=== PATIENT | female | born 1970 | race Caucasian/White ===

== ENCOUNTER 2016-10-01 14:51 | Inpatient (IN) | payer OTHER ==
[~2016-10-01] VITALS: Ht 162.6 cm; Wt 141.3 kg
[2016-10-01 17:28] LABS: URINE BLOOD (Dip) POC Negative (NEGATIVE)
[2016-10-01] MEDS ORDERED: SOD CHLORIDE 0.9% 1,000 ML IV ONE (17:30)
[2016-10-01 17:47] LABS: ADD SCAN DIFF NO
[2016-10-01 17:55] LABS: ABNORMAL IP MESSAGE 1; HEMATOCRIT 22.7 % (37.0-47.0); MEAN CORPUSCULAR HEMOGLOBIN 17.1 pg (29.0-33.0); MEAN CORPUSCULAR HGB CONC 26.4 g/dl (32.0-37.0); MEAN CORPUSCULAR VOLUME 64.7 fl (82.0-101.0); PLATELET COUNT 266 10^3/UL (140-415); RED BLOOD COUNT 3.51 10^6/ul (4.20-5.40)
[2016-10-01 18:25] LABS: ALBUMIN 4.4 g/dl (3.3-4.9); ALBUMIN/GLOBULIN RATIO 1.18; BILIRUBIN,INDIRECT 0.1 mg/dl (0-1.1); BILIRUBIN,TOTAL 0.1 mg/dl (0.2-1.3); CALCIUM 8.8 mg/dl (8.4-10.2); CREATININE 0.87 mg/dl (0.44-1.00); TOTAL PROTEIN 8.1 g/dl (6.1-8.1)
[2016-10-01] MEDS ORDERED: SOD CHLORIDE 0.9% 250 ML IV ONE (18:44)
[2016-10-01 18:57] LABS: EOSINOPHILS # 0.1 10^3/ul (0.0-0.5); LYMPHOCYTES # 1.3 10^3/ul (0.8-2.9); MONOCYTE # 0.4 10^3/ul (0.3-0.9); NEUTROPHIL # 4.3 10^3/ul (1.6-7.5)
--- NOTE | 2016-10-01 19:34 | RADRPT ---
PROCEDURE: US Pelvis. CLINICAL INDICATION: Heavy menses TECHNIQUE: Multiple sonographic images of the pelvis were obtained utilizing a transabdominal and endovaginal technique. The images were reviewed on a PACS workstation. COMPARISON: None. FINDINGS: The uterus is visualized and measures 9.1 x 4.3 x 4.9 cm. The endometrial echo complex measures 11.2 mm thickness. A few simple appearing Nabothian cysts are seen in the cervix. No uterine masses are identified. The ovaries are not well visualized. No adnexal masses or pelvic free fluid are noted. IMPRESSION: Few simple appearing Nabothian cysts in the cervix. Ovaries not well visualized. If characterization of this structure is needed repeat exam or MRI is r ecommended. If further characterization of the organs of the pelvis is needed MRI should be considered. RPTAT: AA .Dc Morin MD, Date Time Electronically viewed and signed by .Dc Morin MD, MD on 10/01/2016 19:33 .P/
[2016-10-01] MEDS ORDERED: ACETAMINOPHEN 325 MG TAB PO PRN (20:00)
[2016-10-01] MEDS ORDERED: ONDANSETRON 4 MG INJ IV PRN (20:00)
[2016-10-01 20:14] LABS: INR 1.06; PROTIME 13.8 Sec (12.2-14.2); PT RATIO 1.1
[2016-10-01 20:15] LABS: PARTIAL THROMBOPLASTIN TIME 28.2 Sec (25.0-35.0)
[2016-10-01 20:25] VITALS: Ht 162.6 cm; Wt 141.3 kg
[2016-10-01 21:56] VITALS: BP 125/58; RESP 18
--- NOTE | 2016-10-01 22:19 | ERA ---
ER Documentation Chief Complaint Date/Time DATE: 10/01/16 TIME: 22:12 Chief Complaint BIB DAUGHTER FOR LOW HGB 6. REFERRED FROM PMD. BLOOD WORK DONE SAT HPI Patient is a 46-year-old female with hypertension who presents for anemia. The patient was sent by her primary doctor for a hemoglobin of 6. She had blood drawn on Friday. She said that she had a very heavy period this month. She has had no further bleeding and says that in the past she has had normal periods. She denies being . She denies pain. She does feel shortness of breath and feels generalized weakness. Upon review of the old medical records this is the patient's first visit to the emergency department. [facility] to [facility] for her care. She has had no treatment as of yet. ROS All systems reviewed and are negative except as per history of present illness. Allergies Allergies: Coded Allergies: codeine (Verified Allergy, Unknown, 10/01/16) PMhx/Soc History of Surgery: No Anesthesia Reaction: No Hx Neurological Disorder: No Hx Respiratory Disorders: No Hx Cardiac Disorders: No Hx Psychiatric Problems: Yes (Bipolar) Hx Miscellaneous Medical Probl: Yes (HTN) Hx Alcohol Use: No Hx Substance Use: No Hx Tobacco Use: No Smoking Status: Never smoker FmHx Family History: diabetes Physical Exam Vitals Vital Signs Date Time Temp Pulse Resp B/P Pulse Ox O2 Delivery O2 Flow Rate FiO2 10/01/16 15:02 98.7 97 18 142/65 98 Physical Exam Const: No acute distress Head: Atraumatic Eyes: Normal Conjunctiva ENT: Normal External Ears, Nose and Mouth. Neck: Full range of motion..~ No meningismus. Resp: Clear to auscultation bilaterally Cardio: Regular rate and rhythm, no murmurs Abd: Soft, non tender, non distended. Normal bowel sounds Skin: Pale skin Back: No midline or flank tenderness Ext: No cyanosis, or edema Neur: Awake and alert Psych: Normal Mood and Affect Result Diagram: 10/01/16 1730 10/01/16 1730 Results 24 hrs Laboratory Tests Test 10/01/16 17:30 10/01/16 17:32 10/01/16 19:20 White Blood Count 6.010^3/ul Red Blood Count 3.5110^6/ul Hemoglobin 6.0g/dl Hematocrit 22.7% Mean Corpuscular Volume 64.7fl Mean Corpuscular Hemoglobin 17.1pg Mean Corpuscular Hemoglobin Concent 26.4g/dl Red Cell Distribution Width 19.0% Platelet Count 69052^3/UL Mean Platelet Volume 10.0fl Neutrophils % 71.0% Lymphocytes % 21.0% Monocytes % 7.0% Eosinophils % 1.0% Neutrophils # 4.310^3/ul Lymphocytes # 1.310^3/ul Monocytes # 0.410^3/ul Eosinophils # 0.110^3/ul Differential Comment Sodium Level 136mmol/L Potassium Level 4.0mmol/L Chloride Level 102mmol/L Carbon Dioxide Level 25mmol/L Anion Gap 13 Blood Urea Nitrogen 13mg/dl Creatinine 0.87mg/dl Glucose Level 102mg/dl Calcium Level 8.8mg/dl Total Bilirubin 0.1mg/dl Direct Bilirubin 0.00mg/dl Indirect Bilirubin 0.1mg/dl Aspartate Amino Transf (AST/SGOT) 23IU/L Alanine Aminotransferase (ALT/SGPT) 32IU/L Alkaline Phosphatase 87IU/L Total Protein 8.1g/dl Albumin 4.4g/dl Globulin 3.70g/dl Albumin/Globulin Ratio 1.18 Bedside Urine pH (LAB) 6.0 Bedside Urine Protein (LAB) 1+ Bedside Urine Glucose (UA) Negative Bedside Urine Ketones (LAB) Negative Bedside Urine Blood Negative Bedside Urine Nitrite (LAB) Negative Bedside Urine Leukocyte Esterase (L Trace Prothrombin Time 13.8Sec Prothrombin Time Ratio 1.1 INR International Normalized Ratio 1.06 Activated Partial Thromboplast Time 28.2Sec Current Medications Medications (Trade) Dose Ordered Sig/Malvin Route PRN Reason Start Time Stop Time Status Last Admin Dose Admin Sodium Chloride 1,000 ml @ 1,000 mls/hr Q1H ONCE IV 10/01/16 17:30 10/01/16 18:29 DC 10/01/16 17:38 Sodium Chloride (NS) 250 ml @ 0 mls/hr Q0M ONCE IV 10/01/16 18:44 10/01/16 18:45 DC Procedures/MDM PROCEDURE: US Pelvis. CLINICAL INDICATION: Heavy menses TECHNIQUE: Multiple sonographic images of the pelvis were obtained utilizing a transabdominal and endovaginal technique. The images were reviewed on a PACS workstation. COMPARISON: None. FINDINGS: The uterus is visualized and measures 9.1 x 4.3 x 4.9 cm. The endometrial echo complex measures 11.2 mm thickness. A few simple appearing Nabothian cysts are seen in the cervix. No uterine masses are identified. The ovaries are not well visualized. No adnexal masses or pelvic free fluid are noted. IMPRESSION: Few simple appearing Nabothian cysts in the cervix. Ovaries not well visualized. If characterization of this structure is needed repeat exam or MRI is recommended. If further characterization of the organs of the pelvis is needed MRI should be considered. RPTAT: AA .Dc Morin MD, MD Date Time Electronically viewed and signed by .Dc Morin MD, on 10/01/2016 19:33 Patient is a 46-year-old female who presents with acute anemia with symptoms. The patient will be given a transfusion of 2 units of packed red blood cells. I believe this is likely related to her heavy period recently. She will need admission to the hospital and I spoke with Dr. Aden from the panel team for admission. The patient has [employer] insurance and will be admitted to the panel team. Critical Care: Time: 35 minutes excluding all billable procedures. Treatments/Evaluations: Close monitoring and treatment of unstable vital signs, cardiorespiratory, and neurologic status, while maintaining tight balance of fluid, respiratory, and cardiac interventions. Departure Diagnosis: Primary Impression: Anemia Qualified Code: D64.9 - Anemia, unspecified type Condition: Serious JENNIFER ADKINS MD Oct 01, 2016 22:19
[2016-10-02] MEDS ORDERED: ONDANSETRON 4 MG INJ IV PRN (01:30)
[2016-10-02] MEDS ORDERED: ACETAMINOPHEN 325 MG TAB PO PRN (01:30)
[2016-10-02] MEDS ORDERED: SOD FERRIC GLUC COMPLX 125 MG in SOD CHLORIDE 0.9% 100 ML IVPB ONE (01:30)
[2016-10-02] MEDS ORDERED: NACL 0.9% 3 ML SYG IV SCH (01:30)
[2016-10-02] MEDS ORDERED: HYDROCODONE/APAP (5/325) TAB PO PRN (01:30)
[2016-10-02] MEDS ORDERED: DOCUSATE SODIUM 100 MG CAP PO PRN (01:30)
[2016-10-02] MEDS ORDERED: ZOLPIDEM 5 MG TAB PO PRN (01:30)
[2016-10-02] MEDS ORDERED: morphine 2 MG INJ IV PRN (01:30)
--- NOTE | 2016-10-02 03:36 | HP ---
DATE OF ADMISSION: 10/01/2016 TIME: 11:55 p.m. CHIEF COMPLAINT: Anemia. HISTORY OF PRESENT ILLNESS: The patient is a 46-year-old female with history of hypertension. The patient presents with anemia. The patient had blood work done with her PMD and was found to have he moglobin of 6. The patient states that she had very heavy menses this past month but does not typic ally have heavy menses. She does have a mechanical design technician and has a followup appointment in the next sev eral weeks. The patient denies any pain, any dizziness and she denies any syncope but she does repo rt some generalized weakness. The patient denies any melena or any leila red blood in the stool. PAST MEDICAL HISTORY: Hypertension. PAST SURGICAL HISTORY: Denies. HOME MEDICATIONS: The patient starting taking iron yesterday. ALLERGIES: CODEINE. FAMILY HISTORY: Noncontributory. SOCIAL HISTORY: Denies any alcohol, tobacco or drugs. REVIEW OF SYSTEMS: A 12-point review of systems negative except as per HPI. PHYSICAL EXAMINATION: VITAL SIGNS: Temperature is 98.0, pulse 80, respiratory rate 18, BP is 125/58, saturation 100% room air. GENERAL: No acute distress, alert and oriented. HEENT: Normocephalic, atraumatic. LUNGS: Clear to auscultation. CARDIOVASCULAR: Regular rate and rhythm. ABDOMEN: Nondistended, nontender, soft, obese. EXTREMITIES: No clubbing, cyanosis, or edema. LABORATORY TESTS: White count 6.0, hemoglobin 6.0, platelets are 266, MCV is 64.7. Chemistry withi n normal limits. INR is 1.06. UA is normal except for trace leukocyte esterase. DIAGNOSTICS: Pelvis ultrasound shows a few simple appearing nabothian cyst in the cervix, ovary is not well visualized. ASSESSMENT AND PLAN: 1. Severe anemia, likely secondary to heavy menses. The patient does have microcytic anemia ____ panel. The patient has been started on iron as an outpatient. The patient was ordered 2 units pack ed red blood cells. Pelvic ultrasound shows no significant findings. The patient does have appoint ment to follow up with her mechanical design technician in the next several weeks. The patient has no evidence of G I bleeding but will check a stool occult blood. 2. History of hypertension. The patient has no reported home BP medications. 3. Morbid obesity. Lifestyle changes should be advised. 4. Prophylaxis: SCDs. Dictated By: NAVEEN SPARKS MD BS/NTS Conf#: [id number] DID#: [id number]
[2016-10-02 08:00] VITALS: BP_SYST 128; BP_SYST 98; BP_DIAS 54; BP_DIAS 61; PULSE 80; RESP 18
[2016-10-02 10:30] LABS: ADD SCAN DIFF NO
[2016-10-02 10:35] LABS: ABNORMAL IP MESSAGE 1; BASOPHILS % 0.2 % (0.0-2.0); EOSINOPHILS # 0.2 10^3/ul (0.0-0.5); EOSINOPHILS % 2.5 % (0.0-7.0); HEMATOCRIT 26.5 % (37.0-47.0); HEMOGLOBIN 7.3 g/dl (12.0-16.0); LYMPHOCYTES # 1.2 10^3/ul (0.8-2.9); LYMPHOCYTES % 19.2 % (15.0-51.0); MEAN CORPUSCULAR HEMOGLOBIN 19.2 pg (29.0-33.0); MEAN CORPUSCULAR HGB CONC 27.5 g/dl (32.0-37.0); MEAN CORPUSCULAR VOLUME 69.7 fl (82.0-101.0); MEAN PLATELET VOLUME 10.1 fl (7.4-10.4); MONOCYTE # 0.6 10^3/ul (0.3-0.9); MONOCYTES % 9.3 % (0.0-11.0); NEUTROPHIL # 4.1 10^3/ul (1.6-7.5); NEUTROPHILS % 68.3 % (39.0-77.0); NUCLEATED RED BLOOD CELLS% 0.3 /100WBC (0.0-0.0); PLATELET COUNT 239 10^3/UL (140-415); WHITE BLOOD COUNT 6.1 10^3/ul (4.8-10.8)
[2016-10-02 11:03] LABS: IRON 115 ug/dl (35-150)
[2016-10-02 11:04] LABS: CALCIUM 8.5 mg/dl (8.4-10.2); CREATININE 0.83 mg/dl (0.44-1.00); POTASSIUM 4.8 mmol/L (3.5-5.1)
[2016-10-02 11:13] LABS: TOTAL IRON BINDING CAPACITY 371 ug/dl (241-421)
[2016-10-02 22:50] VITALS: BP 128/59; RESP 18
[2016-10-03 06:53] LABS: ADD SCAN DIFF NO
[2016-10-03 07:02] LABS: ABNORMAL IP MESSAGE 1; BASOPHILS % 0.1 % (0.0-2.0); EOSINOPHILS # 0.2 10^3/ul (0.0-0.5); HEMATOCRIT 30.7 % (37.0-47.0); HEMOGLOBIN 8.9 g/dl (12.0-16.0); LYMPHOCYTES # 1.8 10^3/ul (0.8-2.9); LYMPHOCYTES % 22.8 % (15.0-51.0); MEAN CORPUSCULAR HEMOGLOBIN 21.1 pg (29.0-33.0); MEAN CORPUSCULAR VOLUME 72.7 fl (82.0-101.0); MONOCYTE # 0.6 10^3/ul (0.3-0.9); MONOCYTES % 7.5 % (0.0-11.0); NEUTROPHIL # 5.2 10^3/ul (1.6-7.5); NUCLEATED RED BLOOD CELLS% 0.5 /100WBC (0.0-0.0); PLATELET COUNT 234 10^3/UL (140-415); RED BLOOD COUNT 4.22 10^6/ul (4.20-5.40); RED CELL DISTRIBUTION WIDTH 24.5 % (11.5-14.5); WHITE BLOOD COUNT 7.9 10^3/ul (4.8-10.8)
[2016-10-03 08:00] VITALS: BP 116/58; RESP 20
--- NOTE | 2016-10-03 15:20 | DS ---
DATE OF ADMISSION: 10/01/2016 DATE OF DISCHARGE: 10/03/2016 DISCHARGE DIAGNOSES: 1. Severe anemia secondary to heavy menses. 2. Status post transfusion of 4 packed units of red blood cells. 3. History of hypertension. 4. Obesity, morbid. HOSPITAL COURSE: A 46-year-old woman with a history of hypertension was seen by her PCP and found t o have a hemoglobin of 6 and subsequently transferred to the hospital. She was having heavy menses during the past month and was scheduled to see a band splicer, but has not seen her yet. In any robert nt, the patient was given a total of 4 units of packed RBC. Now, hemoglobin is 8.9 and hematocrit i s 30.7. Currently, she is not having any active bleeding. The patient is anxious to go home. The patient will be discharged home today. DISCHARGE INSTRUCTIONS: 1. Diet: Low sodium diet. 2. Activity: As tolerated. CONDITION UPON DISCHARGE: Stable. MEDICATIONS UPON DISCHARGE: The patient will continue her home meds including iron. FOLLOWUP: The patient will follow up with PCP tomorrow, she already has an appointment. The patien t is also urged to see a band splicer as early as possible. PCP will help her make that arrangement . The patient is also told that in case if she has recurrent bleeding, she should return back to PM D's office [facility] to do a CBC to make sure she is not severely anemic. Above plans discussed with patient, family and staff. Dictated By: ANKUSH SANDOVAL MD, MA/CARMELO Conf#: [id number] DID#: [id number]
== END 2016-10-03 17:26 | disposition home or self-care (01) | DRG 812 ==
LOC: FTE 14:51 → PP2 19:41
PROVIDERS: ADMIT Internal Medicine; ATTEND Internal Medicine
PROC: 30233N1 Transfusion of Nonautologous Red Blood Cells into Peripheral Vein, Percutaneous Approach (ICD-10-PCS; 2016-10-01)
PROC: 30233N1 Transfusion of Nonautologous Red Blood Cells into Peripheral Vein, Percutaneous Approach (ICD-10-PCS; principal; 2016-10-02)
DX: D50.0 Iron deficiency anemia secondary to blood loss (chronic) (principal); Z68.43 Body mass index [BMI] 50.0-59.9, adult; I10 Essential (primary) hypertension; F31.9 Bipolar disorder, unspecified; E66.01 Morbid (severe) obesity due to excess calories
CPT/HCPCS: 36415; 36430; 76830; 76856; 80048; 80053; 81003; 82270; 83036; 83540; 85025; 85610; 85730; 86850; 86900; 86901; 86920; J2916; J7030; J7040; P9016

== ENCOUNTER 2016-10-24 15:44 | Emergency (ER) | payer OTHER ==
[~2016-10-24] VITALS: Ht 157.5 cm; Wt 130.0 kg
[2016-10-24 16:01] VITALS: Ht 157.5 cm; Wt 130.0 kg
--- NOTE | 2016-10-24 17:09 | ERD ---
ER Documentation Chief Complaint Date/Time DATE: 10/24/16 TIME: 17:07 Chief Complaint Complains of vag bleed x days HPI This is a 46-year-old female presents to the ER with vaginal bleeding since October 19 when she got her menstrual period. Patient has had heavy periods since last month. She was seen here and needed a blood transfusion. Patient states that she does have some mild cramping. Patient states that over the last couple of days her bleeding has gotten significantly worse. Patient denies any dizziness or weakness. She denies any nausea vomiting or diarrhea. ROS 12 point review of systems was done, all negative except per HPI. Medications Home Meds Active Scripts Cephalexin* (Keflex*) 500 Mg Capsule, 500 MG PO BID for 7 Days, CAP Prov:NAFISA OLVERA 10/24/16 Allergies Allergies: Coded Allergies: codeine (Verified Allergy, Unknown, 10/01/16) PMhx/Soc History of Surgery: No Anesthesia Reaction: No Hx Neurological Disorder: No Hx Respiratory Disorders: Yes (ASTHMA ) Hx Cardiac Disorders: Yes (HTN ) Hx Psychiatric Problems: Yes (BIPOLAR ) Hx Miscellaneous Medical Probl: Yes (ANEMIA , OBESITY ) Hx Alcohol Use: No Hx Substance Use: No Hx Tobacco Use: No Smoking Status: Never smoker Physical Exam Vitals Vital Signs Date Time Temp Pulse Resp B/P Pulse Ox O2 Delivery O2 Flow Rate FiO2 10/24/16 16:01 98.5 75 20 162/84 100 Physical Exam GENERAL: The patient is well developed and appropriate for usual state of health , in no apparent distress. HEENT: Atraumatic. CHEST: Clear to auscultation bilaterally. There are no rales, wheezes or rhonchi. HEART: Regular rate and rhythm. No murmurs, clicks, rubs or gallops. ABDOMEN: Soft, nontender and nondistended. Good bowel sounds. No rebound or guarding. No gross peritonitis. No gross organomegaly or masses. No Thomas sign or McBurney point tenderness. BACK: No midline or flank tenderness.Grossly neurovascularly intact. NEURO: Alert and oriented. SKIN: There is no apparent rash or petechia. The skin is warm and dry. Result Diagram: 10/24/16 1722 10/24/16 1722 Results 24 hrs Laboratory Tests Test 10/24/16 17:06 10/24/16 17:22 Urine Color YELLOW Urine Clarity CLEAR Urine pH 7.0 Urine Specific Roy 1.014 Urine Ketones NEGATIVEmg/dL Urine Nitrite NEGATIVEmg/dL Urine Bilirubin NEGATIVEmg/dL Urine Urobilinogen 1+mg/dL Urine Leukocyte Esterase 1+Jagdish/ul Urine Microscopic RBC > 182/HPF Urine Microscopic WBC 0/HPF Urine Bacteria FEW/HPF Urine Hemoglobin 3+mg/dL Urine Glucose NEGATIVEmg/dL Urine Total Protein 2+mg/dl White Blood Count 6.010^3/ul Red Blood Count 5.1810^6/ul Hemoglobin 12.3g/dl Hematocrit 38.6% Mean Corpuscular Volume 74.5fl Mean Corpuscular Hemoglobin 23.7pg Mean Corpuscular Hemoglobin Concent 31.9g/dl Red Cell Distribution Width % Platelet Count 24560^3/UL Mean Platelet Volume fl Neutrophils % 58.4% Lymphocytes % 29.1% Monocytes % 9.5% Eosinophils % 1.8% Basophils % 0.5% Nucleated Red Blood Cells % 0.0/100WBC Neutrophils # 3.510^3/ul Lymphocytes # 1.810^3/ul Monocytes # 0.610^3/ul Eosinophils # 0.110^3/ul Basophils # 0.010^3/ul Nucleated Red Blood Cells # 0.010^3/ul Prothrombin Time 13.1Sec Prothrombin Time Ratio 1.0 INR International Normalized Ratio 0.99 Activated Partial Thromboplast Time 31.5Sec Sodium Level 135mmol/L Potassium Level 3.3mmol/L Chloride Level 99mmol/L Carbon Dioxide Level 26mmol/L Anion Gap 13 Blood Urea Nitrogen 12mg/dl Creatinine 0.72mg/dl Glucose Level 112mg/dl Calcium Level 9.4mg/dl Total Bilirubin 0.2mg/dl Direct Bilirubin 0.00mg/dl Indirect Bilirubin 0.2mg/dl Aspartate Amino Transf (AST/SGOT) 32IU/L Alanine Aminotransferase (ALT/SGPT) 37IU/L Alkaline Phosphatase 93IU/L Total Protein 9.0g/dl Albumin 4.7g/dl Globulin 4.30g/dl Albumin/Globulin Ratio 1.09 Procedures/MDM Differential diagnosis: Threatened , missed , incomplete , ectopic , molar , UTI, pyelonephritis, dysfunctional uterine bleeding. This is a 46-year-old female presents to the ER with heavy menstruation. Patient likely has dysfunctional uterine bleeding, she may be coming to the end of her menstruations. Patient did have a transfusion last visit therefore blood work was drawn however there was no evidence of anemia. Ultrasound was normal. Patient is extremely well- appearing and she is stable for outpatient follow-up. I explained to patient that she could use hormonal therapy to control bleeding however she would be at higher risk for blood clots and complications with her hypertension, therefore she should be started on those by her HOME HEALTH AID who can provide close follow-up care. Patient will be sent home with Keflex for UTI infection that was found in the ER. She is to follow-up with her HOME [facility]ALTH [facility]ID within 1-2 days or return to ER sooner if symptoms worsen. My medical decision making shared with the patient she understands and agrees with plan. Departure Diagnosis: Primary Impression: Vaginal bleeding Condition: Stable NAFISA OLVERA Oct 24, 2016 17:09
[2016-10-24 17:59] LABS: INR 0.99; PROTIME 13.1 Sec (12.2-14.2)
[2016-10-24 18:00] LABS: PARTIAL THROMBOPLASTIN TIME 31.5 Sec (25.0-35.0)
[2016-10-24 18:04] LABS: ALBUMIN 4.7 g/dl (3.3-4.9); ALBUMIN/GLOBULIN RATIO 1.09; BILIRUBIN,INDIRECT 0.2 mg/dl (0-1.1); BILIRUBIN,TOTAL 0.2 mg/dl (0.2-1.3); CALCIUM 9.4 mg/dl (8.4-10.2); CREATININE 0.72 mg/dl (0.44-1.00); POTASSIUM 3.3 mmol/L (3.5-5.1)
[2016-10-24 18:23] LABS: ABNORMAL IP MESSAGE 1; BASOPHILS % 0.5 % (0.0-2.0); EOSINOPHILS # 0.1 10^3/ul (0.0-0.5); EOSINOPHILS % 1.8 % (0.0-7.0); HEMOGLOBIN 12.3 g/dl (12.0-16.0); LYMPHOCYTES # 1.8 10^3/ul (0.8-2.9); LYMPHOCYTES % 29.1 % (15.0-51.0); MEAN CORPUSCULAR HEMOGLOBIN 23.7 pg (29.0-33.0); MEAN CORPUSCULAR HGB CONC 31.9 g/dl (32.0-37.0); MEAN CORPUSCULAR VOLUME 74.5 fl (82.0-101.0); MONOCYTE # 0.6 10^3/ul (0.3-0.9); MONOCYTES % 9.5 % (0.0-11.0); NEUTROPHIL # 3.5 10^3/ul (1.6-7.5); NEUTROPHILS % 58.4 % (39.0-77.0); PLATELET COUNT 234 10^3/UL (140-415)
[2016-10-24 18:24] LABS: ADD SCAN DIFF YES; HEMATOCRIT 38.6 % (37.0-47.0); RED BLOOD COUNT 5.18 10^6/ul (4.20-5.40)
--- NOTE | 2016-10-24 18:34 | RADRPT ---
PROCEDURE: US Pelvis. CLINICAL INDICATION: Vaginal bleeding TECHNIQUE: Multiple sonographic images of the pelvis were obtained utilizing a transabdominal and endovaginal technique. The images were reviewed on a PACS workstation. COMPARISON: October 01, 2016 FINDINGS: The uterus is visualized and measures 8.2 x 4.2 x 4.3 cm. The endometrial echo complex measures 13 m m thickness. No uterine masses are identified. 11 mm Nabothian cyst is seen in the cervix. The ovaries are not well visualized. No adnexal masses or pelvic free fluid are noted. IMPRESSION: Nabothian cyst in the cervix. Ovaries not well visualized. If characterization of these structures is needed repeat exam or CT/MRI is recommended. If further characterization of the organs of the pelvis is needed MRI should be considered. RPTAT: AA .Dc Morin MD, MD Date Time Electronically viewed and signed by .Dc Morin MD, MD on 10/24/2016 18:33 .P/
[2016-10-24 18:50] LABS: ADD UMIC YES; UR ASCORBIC ACID 40 mg/dL (NEGATIVE); UR BACTERIA FEW /HPF (NONE SEEN); UR BILIRUBIN (Dip) NEGATIVE (NEGATIVE); UR BLOOD (Dip) 3+ mg/dL (NEGATIVE); UR CLARITY CLEAR (CLEAR); UR COLOR YELLOW (YELLOW); UR GLUCOSE (Dip) NEGATIVE (NEGATIVE); UR KETONES (Dip) NEGATIVE (NEGATIVE); UR LEUKOCYTE ESTERASE (Dip) 1+ Leu/ul (NEGATIVE); UR NITRITE (Dip) NEGATIVE (NEGATIVE); UR RBC > 182 /HPF (0-5); UR SPECIFIC GRAVITY (Dip) 1.014 (1.003-1.030); UR TOTAL PROTEIN (Dip) 2+ mg/dl (NEGATIVE); UR UROBILINOGEN (Dip) 1+ mg/dL (NEGATIVE); UR WBC CLUMPS RARE /HPF (NONE SEEN)
[2016-10-24] MEDS ORDERED: CEPH-443 PO (18:57)
[2016-10-24 19:43] VITALS: BP 150/78; PULSE 70; RESP 20; TEMP 98.3
== END 2016-10-24 19:44 | disposition home or self-care (01) ==
LOC: FTE 15:44
DX: N93.9 Abnormal uterine and vaginal bleeding, unspecified (principal); I10 Essential (primary) hypertension; J45.909 Unspecified asthma, uncomplicated; E66.9 Obesity, unspecified; R10.9 Unspecified abdominal pain; Z68.43 Body mass index [BMI] 50.0-59.9, adult
CPT/HCPCS: 76830; 76856; 80053; 81001; 85025; 85610; 85730; 86900; 86901; Z7502